=== PATIENT | female | born 1970 | race Two or more races ===

== ENCOUNTER 2017-08-16 16:54 | Emergency (ER) | payer MEDICAID, OTHER ==
[~2017-08-16] VITALS: Ht 152.4 cm; Wt 53.5 kg
[2017-08-16] MEDS ORDERED: HYDROCHLOROTHIA25 MG ORAL (18:32)
[2017-08-16 19:23] VITALS: BP 136/68
[2017-08-16 19:24] VITALS: BP 136/68
--- NOTE | 2017-08-16 23:11 | Emergency Room Report ---
History of Present Illness General Chief Complaint: General Complaint Source: Patient Present Illness [facility] The patient is a 46-year-old female presenting for complaint of water retention. She states that she went to [place] over the past week, return 3 days prior, and noticed swelling of both legs and abdomen. She denies any pain. She denies other symptoms including nausea, vomiting, fever, chills, shortness of breath, chest pain, diarrhea, hematochezia, melena, constipation. Allergies: Coded Allergies: POLLEN EXTRACTS (Verified Allergy, Unknown, 08/16/17) Patient History Past Medical History: see triage record Pertinent Family History: none Last Menstrual Period: One week ago Now: No Reviewed Nursing Documentation: PMH: Agreed, PSxH: Agreed Nursing Documentation-PMH Past Medical History: No Stated History Review of Systems All Other Systems: negative except mentioned in HPI Physical Exam Vital Signs Date Time Temp Pulse Resp B/P (MAP) Pulse Ox O2 Delivery O2 Flow Rate FiO2 08/16/17 17:22 97.7 71 16 136/68 99 Room Air Sp02 EP Interpretation: reviewed, normal General Appearance: no apparent distress, alert, GCS 15, non-toxic Head: normocephalic, atraumatic Eyes: bilateral eye normal inspection, bilateral eye PERRL ENT: hearing grossly normal, normal pharynx, no angioedema, normal voice Neck: full range of motion, supple/symm/no masses Respiratory: chest non-tender, lungs clear, normal breath sounds, no rhonchi, no accessory muscle use, no wheezing, speaking full sentences Cardiovascular #1: regular rate, rhythm, no edema Gastrointestinal: normal bowel sounds, non tender, soft, non-distended, no guarding, no rebound Genitourinary: normal inspection, no CVA tenderness Musculoskeletal: back normal, gait/station normal, normal range of motion, non- tender Neurologic: alert, oriented x3, responsive, motor strength/tone normal, sensory intact, speech normal Psychiatric: judgement/insight normal, memory normal, mood/affect normal, no suicidal/homicidal ideation Skin: normal color, no rash, other - 1+ pitting edema to bilat lower extrem Lymphatic: no adenopathy Medical Decision Making PA Attestation Dr. Kearns is my supervising physician. Patient management was discussed with my supervising physician Diagnostic Impression: Primary Impression: Water retention ER Course The patient is a 46-year-old female presenting for complaint of water retention. Differential diagnoses considered but not limited to: Gastroenteritis, venous insufficiency, lymphedema, sodium retention, among others PE: Vitals WNL. NAD. Abdomen: Normal appearance. Non distended. No ecchymosis. Normal BS. Non TTP. No McBurney point tenderness. No guarding. No CVA tenderness Lungs are clear to auscultation bilaterally There is bilateral lower extremity 1+ pitting edema from the mid lower leg to the feet. No calf tenderness. The patient is discharged home and given limited prescription for hydrochlorothiazide. She will follow up with her primary doctor. ER precautions given Last Vital Signs Date Time Temp Pulse Resp B/P (MAP) Pulse Ox O2 Delivery O2 Flow Rate FiO2 08/16/17 19:24 97.7 65 16 136/68 99 Room Air Status: improved Disposition: HOME, SELF-CARE Condition: Improved Scripts Hydrochlorothiazide* (HYDROCHLOROTHIAZIDE*) 25 Mg Tablet 25 MG ORAL DAILY, #10 TAB Prov: AARON ENCARNACION 08/16/17 Patient Instructions: Edema Additional Instructions: I discussed my findings with the patient. All questions and concerns have been answered. Treatment and medication compliance have been addressed. I advised the patient that they need to follow up with PMD in 3-5 days. Return to ED if symptoms worsen, new symptoms arise such as shortness of breath, calf pain, or if needed for any reason. Patient verbalized understanding of discharge instructions. AARON ENCARNACION Aug 16, 2017 23:11
== END 2017-08-16 19:00 | disposition home or self-care (01) ==
LOC: EMR 17:51
DX: R60.9 Edema, unspecified (principal); Z91.048 Other nonmedicinal substance allergy status
CPT/HCPCS: 99283